=== PATIENT | female | born 1965 | race Caucasian/White ===

== ENCOUNTER 2017-09-23 18:24 | Inpatient (IN) | payer MEDICARE ==
[~2017-09-23] VITALS: Ht 152.4 cm; Wt 74.9 kg
[2017-09-23 18:29] VITALS: BP 94/52; PULSE 72; RESP 18; TEMP 96.4; O2SAT 97
[2017-09-23] MEDS ORDERED: diphenhydrAMINE HCL 50 MG/ML VIAL IM PRN (18:45)
[2017-09-23] MEDS ORDERED: diphenhydrAMINE HCL 50 MG CAP - HS PRN PO (18:45)
[2017-09-23] MEDS ORDERED: diphenhydrAMINE HCL 50 MG/ML VIAL - HS PRN IM (18:45)
[2017-09-23] MEDS ORDERED: diphenhydrAMINE HCL 50 MG CAP PO PRN (18:45)
[2017-09-23] MEDS ORDERED: MAGNESIUM HYDROXIDE SUSP 30 ML CUP PO PRN (18:45)
[2017-09-23] MEDS: REMOVE OLD NICOTINE PATCH T-DERMAL SCH (21:00)
[2017-09-24 06:11] VITALS: BP 114/67; PULSE 68; RESP 17; TEMP 97; O2SAT 96
[2017-09-24 09:11] LABS: BLOOD UREA NITROGEN 18 MG/DL (7-18); CALCIUM 9.1 MG/DL (8.5-10.1); CHLORIDE 110 MEQ/L (98-107); GLOMERULAR FILTRATION RATE 58 ML/MIN (>89); GLUCOSE,RANDOM 96 MG/DL (74-106); SODIUM (NA) 143 MEQ/L (136-145)
[2017-09-24 09:12] LABS: CHOLESTEROL 130 MG/DL (120-200); TRIGLYCERIDES 126 MG/DL (42-150)
[2017-09-24 09:14] LABS: CHOLESTEROL/ HDL RATIO 2.78 RATIO; HDL CHOLESTEROL 46.7 MG/DL (40.0-60.0); LDL CHOLESTEROL 58 MG/DL (0-99)
[2017-09-24] MEDS ORDERED: hydrOXYzine HCL 50 MG TAB PO PRN (10:30)
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
[2017-09-24 11:29] LABS: HEMOGLOBIN A1C 5.5 % (4.3-6.0)
[2017-09-24] MEDS: ACETAMINOPHEN 325 MG TAB PO PRN ×2 (11:45→20:01)
[2017-09-24] MEDS: NICOTINE 21 MG/24 HR PATCH T-DERMAL SCH (11:51)
[2017-09-24] MEDS: hydrOXYzine HCL 50 MG TAB PO PRN ×2 (14:28→20:01)
[2017-09-24 17:37] VITALS: BP 112/68; PULSE 75; RESP 18; TEMP 98.1; O2SAT 100
[2017-09-24] MEDS: REMOVE OLD NICOTINE PATCH T-DERMAL SCH (20:01)
[2017-09-24] MEDS: diphenhydrAMINE HCL 50 MG CAP PO PRN (20:01)
[2017-09-24] MEDS ORDERED: ZIPRASIDONE HCL 40 MG CAP PO SCH (21:00)
[2017-09-25 05:54] VITALS: BP 101/62; PULSE 69; RESP 18; TEMP 97.8; O2SAT 100
[2017-09-25] MEDS: NICOTINE 21 MG/24 HR PATCH T-DERMAL SCH (08:34)
[2017-09-25] MEDS: ACETAMINOPHEN 325 MG TAB PO PRN (10:35)
--- NOTE | 2017-09-25 11:08 | HHI.PYPN ---
Subjective Remarks This note serves as a second opinion for involuntary psychiatric hospitalization. Patient seen and examined with nurse. Chart reviewed. Documentation from [facility] reviewed. Case discussed with nursing staff. No evidence of behavioral disturbance on the inpatient unit. On my examination today, the patient requests that I "take me off whatever is making me sleepy" referring to medication that she started last night, namely Geodon. She denies suicidal ideation presently but says that she was contemplating choking herself with her shoelaces as recently as last night before voluntarily giving her shoes up to nursing. She endorses low mood but says that she usually feels better "when I'm in a secure place." She does not describe AVH presently but says that she has experienced VH of "bugs and things moving" in the past. No delusional material. No current hypomanic or manic symptoms, nor can I elicit any history of same. Presentation has a somewhat manipulative quality and some degree of symptom exaggeration for secondary gain should be considered in the differential. Remainder of the psychiatric ROS is negative. Patient has no acute physical complaints but does report chronic musculoskeletal pains and is requesting Naprosyn. Patient is agreeable to remaining on the inpatient psychiatric unit voluntarily. Past psychiatric history: The patient reports a history of "chronic depression. " She reports that she was admitted 3 months ago to another inpatient psychiatric Hospital. She reports previous suicide attempts by overdose and stepping in front of a truck and train. She reports previous medication trials of Lexapro which was unhelpful, Zoloft which worked as a child but did not work when she tried it again in adulthood, Wellbutrin which the patient did not like , Seroquel on which she overdosed and made her too tired. Cymbalta was reportedly efficacious for pain and depression in the past at uncertain dose, but she experienced tachyphylaxis and stopped this agent; when she next went to mental health provider, they selected a different agent. Family history: The patient reports that her father's side of the family had "problems" and that at least 2 individuals completed suicide. Chemical dependency history: Patient admits to occasional use of alcohol but denies any history of DTs or seizures. She endorses recent use of cocaine. No other substance use reported. Social history: The patient presently has housing but notes that it is not a good living situation as it is in a bad neighborhood and she does not trust the men who live in her building. She previously worked as a corporate development intern. She is . She denies any access to guns or firearms. Past medical history: The patient reports a history of shift work sleep disorder as well as obstructive sleep apnea nonadherent with CPAP therapy. The patient does note that she has been on modafinil in the past for her sleep disorder. Review of Systems Except as stated in HPI: all other systems reviewed are Neg Mental Status Examination Appearance: Disheveled Consciousness: Alert Orientation: x4 Motor Activity: Other (No motor abnormalities noted. No signs of withdrawal noted.) Speech: Unremarkable Language: Adequate Fund of Knowledge: Adequate Attention and Concentration: Adequate Memory: Unremarkable (Grossly intact on clinical exam) Mood: Other (Dysphoric) Affect: Blunt Thought Process & Associations: Intact Thought Content: Appropriate Hallucination Type: None Delusion Type: None Suicidal Ideation: No Suicidal Plan: No Suicidal Intention: No Homicidal Ideation: No Homicidal Plan: No Homicidal Intention: No Insight: Fair Judgment: Impulsive Results Labs Laboratories from outside hospital reviewed: CBC reveals mild leukocytosis with a white blood cell count of 12.1, BMP unremarkable, urine toxicology positive for cocaine. EKG read as sinus rhythm with a QTC of 390 ms, not prolonged. Vitals/IOs Vital Signs Date Time Temp Pulse Resp B/P (MAP) Pulse Ox O2 Delivery O2 Flow Rate FiO2 09/25/17 05:54 97.8 69 18 101/62 (75) 100 Assessment & Plan Problem List: (1) Adjustment disorder with depressed mood ICD Codes: F43.21 - Adjustment disorder with depressed mood (2) Cocaine abuse ICD Codes: F14.10 - Cocaine abuse, uncomplicated Assessment & Plan Patient is agreeable to remaining on the inpatient psychiatric unit voluntarily , and I paddock judge that she is capacitated to consent not only for admission decisions but also for medication/treatment. The patient therefore does not meet criteria for involuntary psychiatric hospitalization. Patient may sign in voluntarily and consent for treatment. I will discontinue Geodon per patient preference. Initiate Cymbalta 30 mg daily with plans to titrate to effect. Atarax as needed for anxiety. R/B/A for medications discussed with patient. Naprosyn and Lidoderm patch for back pain. Check LFTs. Check TSH. Check CBC to follow up on leukocytosis detected at outside hospital. Hospitalist consult for general medical assessment. Continue to monitor on the inpatient unit. Continue other medications and care as ordered. Justification for Cont. Inpt. Monitoring for impairment in safety, none noted. Discharge Planning Anticipate discharge by the end of the week. Request HC Surrog/Guard Advoc?: No Britton Henriquez MD Sep 25, 2017 11:08
[2017-09-25] MEDS: DULoxetine HCl DR 30 MG CAP PO SCH (11:15)
[2017-09-25 12:04] LABS: ALBUMIN 3.7 GM/DL (3.4-5.0); ALT (GPT) 14 U/L (10-53); AST (GOT) 18 U/L (15-37); DIRECT BILIRUBIN ADULT LESS THAN 0.1 MG/DL (0.0-0.2)
[2017-09-25 12:06] LABS: ALKALINE PHOSPHATASE 74 U/L (45-117); INDIRECT BILIRUBIN 0.1 MG/DL (0.0-0.8); TOTAL BILIRUBIN ADULT 0.2 MG/DL (0.2-1.0); TOTAL PROTEIN 7.7 GM/DL (6.4-8.2)
[2017-09-25 17:16] VITALS: BP 111/64; PULSE 78; RESP 18; TEMP 98.1; O2SAT 98
[2017-09-25] MEDS: NAPROXEN 375 MG TAB PO PRN (17:40)
[2017-09-25] MEDS: hydrOXYzine HCL 50 MG TAB PO PRN (17:42)
[2017-09-25] MEDS: ALUMINUM/MAGNESIUM/SIMETH 30 ML CUP PO PRN (19:51)
[2017-09-25 19:54] LABS: AUTOMATED NEUTROPHIL # 6.8 TH/MM3 (1.8-7.7); BASOPHIL # 0.1 TH/MM3 (0-0.2); BASOPHIL % 1.1 % (0.0-2.0); EOSINOPHIL # 0.2 TH/MM3 (0-0.4); EOSINOPHIL % 1.9 % (0.0-4.0); HEMATOCRIT 41.5 % (35.0-46.0); LYMPH % 20.7 % (9.0-44.0); LYMPHOCYTE # 2.1 TH/MM3 (1.0-4.8); MEAN CELL VOLUME 83.9 FL (80.0-100.0); MEAN CORPUSCULAR HEMOGLOBIN 28.4 PG (27.0-34.0); MEAN CORPUSCULAR HGB CONC 33.9 % (32.0-36.0); MEAN PLATELET VOLUME 10.2 FL (7.0-11.0); MONO % 9.5 % (0.0-8.0); NEUT % 66.8 % (16.0-70.0); PLATELET COUNT 245 TH/MM3 (150-450); RED BLOOD COUNT 4.94 MIL/MM3 (4.00-5.30); RED CELL DISTRIBUTION WIDTH 13.2 % (11.6-17.2); WHITE BLOOD COUNT 10.1 TH/MM3 (4.0-11.0)
[2017-09-25] MEDS: diphenhydrAMINE HCL 50 MG CAP PO PRN (21:00)
[2017-09-25] MEDS: REMOVE OLD NICOTINE PATCH T-DERMAL SCH (21:00)
[2017-09-26 06:18] VITALS: BP 99/51; PULSE 59; RESP 18; TEMP 96.7; O2SAT 100
[2017-09-26] MEDS: DULoxetine HCl DR 30 MG CAP PO SCH (09:00)
[2017-09-26] MEDS ORDERED: LIDOCAINE HCL 5% PATCH T-DERMAL SCH (09:00)
[2017-09-26] MEDS: NICOTINE 21 MG/24 HR PATCH T-DERMAL SCH (09:00)
--- NOTE | 2017-09-26 10:55 | HHI.PYPN ---
Subjective Remarks Patient seen and examined with nurse. Chart reviewed. Case discussed with nursing staff. No behavioral issues noted. Case discussed in treatment team. On my examination today, the patient continues to endorse low mood. She endorses poor sleep. She endorses ongoing suicidal ideation. Although she has no desire to hurt herself on the inpatient unit, she does note that there are " a million ways" someone could self-injure, such as by falling from the window- ledge in her room back onto the floor or bed. Patient denies side effects from medications besides some mild nausea, no reported emesis. No acute physical complaints. Patient is requesting additional medication to help with sleep. We discussed her options in this regard, and patient would like to return to Seroquel as she did find it efficacious as a hypnotic and only found it too sedating when she took a dose during the day. Review of Systems Except as stated in HPI: all other systems reviewed are Neg Mental Status Examination Appearance: Appropriate Consciousness: Alert Orientation: x4 Motor Activity: Other (No abnormal motor movements noted. No signs of any withdrawal noted.) Speech: Unremarkable Language: Adequate Fund of Knowledge: Adequate Attention and Concentration: Adequate Memory: Unremarkable Mood: Other (Remains dysphoric) Affect: Blunt (A little more reactive today) Thought Process & Associations: Intact, Logical, Linear Thought Content: Appropriate Hallucination Type: None Delusion Type: None Suicidal Ideation: Yes Suicidal Plan: Yes Suicidal Intention: No (No urge to hurt herself on the inpatient unit) Homicidal Ideation: No Homicidal Plan: No Homicidal Intention: No Insight: Fair Judgment: Impulsive Results Labs Test 09/25/17 19:23 White Blood Count 10.1 TH/MM3 Red Blood Count 4.94 MIL/MM3 Hemoglobin 14.0 GM/DL Hematocrit 41.5 % Mean Corpuscular Volume 83.9 FL Mean Corpuscular Hemoglobin 28.4 PG Mean Corpuscular Hemoglobin Concent 33.9 % Red Cell Distribution Width 13.2 % Platelet Count 245 TH/MM3 Mean Platelet Volume 10.2 FL Neutrophils (%) (Auto) 66.8 % Lymphocytes (%) (Auto) 20.7 % Monocytes (%) (Auto) 9.5 % Eosinophils (%) (Auto) 1.9 % Basophils (%) (Auto) 1.1 % Neutrophils # (Auto) 6.8 TH/MM3 Lymphocytes # (Auto) 2.1 TH/MM3 Monocytes # (Auto) 1.0 TH/MM3 Eosinophils # (Auto) 0.2 TH/MM3 Basophils # (Auto) 0.1 TH/MM3 CBC Comment DIFF FINAL Differential Comment Labs reviewed Vitals/IOs Vital Signs Date Time Temp Pulse Resp B/P (MAP) Pulse Ox O2 Delivery O2 Flow Rate FiO2 09/26/17 06:18 96.7 59 18 99/51 (67) 100 Assessment & Plan Problem List: (1) Adjustment disorder with depressed mood ICD Codes: F43.21 - Adjustment disorder with depressed mood (2) Cocaine abuse ICD Codes: F14.10 - Cocaine abuse, uncomplicated Assessment & Plan Add Seroquel 50 mg at bedtime primarily for sleep although this may help with mood as well. R/P/A for this medication discussed with patient in detail. Continue Cymbalta as ordered, although we may consider titrating this agent as well for mood. Continue to monitor on the high acuity unit at this time. Awaiting hospitalist consultation. Continue other medications and care as ordered. Justification for Cont. Inpt. Med changes. Monitoring for impairment in safety. Discharge Planning Pending stabilization Request HC Surrog/Guard Advoc?: No Britton Henriquez MD Sep 26, 2017 10:55
[2017-09-26] MEDS: hydrOXYzine HCL 50 MG TAB PO PRN ×3 (12:00→22:53)
[2017-09-26] MEDS ORDERED: predniSONE 20 MG TAB PO ONE (14:45)
[2017-09-26] MEDS ORDERED: LORazepam 2 MG TAB PO PRN (14:45)
[2017-09-26] MEDS ORDERED: ALBUTEROL SULFATE 90 MCG/ACT HFA 8 GM INHALER INH PRN (14:45)
[2017-09-26] MEDS ORDERED: LORazepam 2 MG/ML VIAL IV PUSH PRN ×4 (14:45)
[2017-09-26] MEDS ORDERED: FLUMAZENIL 0.5 MG/5 ML VIAL IV PUSH PRN (14:45)
[2017-09-26] MEDS ORDERED: LORazepam 1 MG TAB PO PRN (14:45)
[2017-09-26] MEDS ORDERED: IPRAAER INH (14:48)
[2017-09-26] MEDS ORDERED: ALBU0.63 NEB (14:49)
--- NOTE | 2017-09-26 14:51 | PD.CONS ---
HPI Service [facility] Hospitalists Consult Requested By Primary Care Physician No Primary Care Physician Diagnoses: History of Present Illness History from patient, and review of medical records. Patient is admitted to psychiatry service. Patient reported that she came to the hospital on Monday voluntarily because she knew that she was going into her manic episodes. She stated that for the past 3 days prior to Monday, she was binge drinking, smoking, and using at least 3 g of cocaine by snorting. She usually gets like this and is promiscuous every time she goes into manic episodes. Something has triggered her during this episode and she stated she knew enough to come to the hospital for psychiatry evaluation. She presented to [facility] emergency room. She was then transferred to [place] inpatient psychiatry unit. At the time of my exam, patient is quite calm. Patient states that she usually is a calm person who likes to stay by herself. Her only complaint at present is that she has back pain and neck pain which is starting. She states suffers from osteoarthritis, spondylitis, and fibromyalgia and sciatica. When she gets these type of pains, she usually takes Medrol pack of prednisone together with Robaxin 1 dose and oxycodone one dose. She denies using any chronic opiate abuse. She does not take any prescription meds. Usually she would present to emergency room with the pain is severe and would just be given steroid pills or injection and she would be okay. Patient was given lidocaine patch yesterday. She states that this was not helping her. She is also worried because she has no pitting patch on her and she does not usually smoke cigarettes. She states that she never buys a pack of cigarettes. She only smokes during her manic episodes and usually gets that from others. Patient is noted to be diaphoretic on examination. She reports that she has been sweating quite a bit in the past 2 days. Denies any fever. Denies cough. Denies nasal congestion. Denies any burning urination or pain on urination or frequent urination. Review of Systems Except as stated in HPI: all other systems reviewed are Neg Past Family Social History Allergies: Coded Allergies: amoxicillin (Verified Allergy, Unknown, 09/24/17) aspirin (Verified Allergy, Unknown, 09/24/17) clavulanic acid (Verified Allergy, Unknown, 09/24/17) horseradish (Verified Allergy, Unknown, 09/24/17) Past Medical History Baseline low blood pressure COPD Sleep apnea on C Pap at home. Has not used this for past 1 year since he does not have a primary care doctor. Was born with unilateral left kidney Osteoarthritis Spondylitis Sciatica Fibromyalgia Denies any diabetes/CAD/CHF/atrial fibrillation/liver issues/stroke/blood clots/ seizures/thyroid problems/cancers Past Surgical History Hysterectomy Reattachment of her left unilateral kidney and ureters back to bladder after there was complication post hysterectomy Lysis of adhesions for chronic endometriosis Right oophorectomy/partial hysterectomy/tubal ligation Cervical fusion surgery Lumbar surgery Adenoidectomy Tonsillectomy with partial palate removal Breast reduction surgery Appendectomy Cholecystectomy Family History Both parents with massive SD Mother with diabetes and COPD Cancer in both sides of the family Social History Smokes socially. States she usually smokes only when she is in manic mode. Never buys cigarette by herself. Drinks alcohol when she is in manic mode is present drinking. She has been drinking nonstop for the past 3 days prior to coming to hospital on Monday. Denies IV drug abuse. Snorts cocaine whenever she is in manic episodes. Physical Exam Vital Signs Vital Signs Date Time Temp Pulse Resp B/P (MAP) Pulse Ox O2 Delivery O2 Flow Rate FiO2 09/26/17 06:18 96.7 59 18 99/51 (67) 100 09/25/17 17:16 98.1 78 18 111/64 (80) 98 Physical Exam GENERAL: This is a well-nourished, well-developed patient, in no apparent distress. Very pleasant lady. SKIN: No rashes, ecchymoses or lesions. Cool and dry. HEAD: Atraumatic. Normocephalic. No temporal or scalp tenderness. EYES: No scleral icterus. No injection or drainage. ENT: Nose without bleeding, purulent drainage or septal hematoma.. Airway patent. NECK: Trachea midline. No JVD . Supple, nontender, no meningeal signs. CARDIOVASCULAR: Regular rate and rhythm without murmurs, gallops, or rubs. RESPIRATORY: Clear to auscultation. Breath sounds equal bilaterally. No wheezes , rales, or rhonchi. GASTROINTESTINAL: Abdomen soft, non-tender, nondistended. No guarding. MUSCULOSKELETAL: Extremities without clubbing, cyanosis, or edema. . No calf tenderness. Scoliosis NEUROLOGICAL: Awake and alert. Motor and sensory grossly within normal limits. Normal speech. Laboratory Laboratory Tests Test 09/25/17 19:23 White Blood Count 10.1 Red Blood Count 4.94 Hemoglobin 14.0 Hematocrit 41.5 Mean Corpuscular Volume 83.9 Mean Corpuscular Hemoglobin 28.4 Mean Corpuscular Hemoglobin Concent 33.9 Red Cell Distribution Width 13.2 Platelet Count 245 Mean Platelet Volume 10.2 Neutrophils (%) (Auto) 66.8 Lymphocytes (%) (Auto) 20.7 Monocytes (%) (Auto) 9.5 Eosinophils (%) (Auto) 1.9 Basophils (%) (Auto) 1.1 Neutrophils # (Auto) 6.8 Lymphocytes # (Auto) 2.1 Monocytes # (Auto) 1.0 Eosinophils # (Auto) 0.2 Basophils # (Auto) 0.1 CBC Comment DIFF FINAL Differential Comment Result Diagram: 09/25/17 1923 09/24/17 0800 Assessment and Plan Assessment and Plan Impression: Suicidal ideation Manic episodes prior to hospitalization Acute worsening of chronic arthritic and sciatic pains Diaphoresis. Suspects patient will be going into alcohol withdrawal since she has been binge drinking prior to coming to hospital. Baseline low blood pressure COPD Sleep apnea on C Pap at home. Has not used this for past 1 year since he does not have a primary care doctor. Was born with unilateral left kidney Osteoarthritis Spondylitis Sciatica Fibromyalgia Plan: Will start patient on prednisone 20 mg by mouth daily dose. With aim to DC the dose within 3-5 days. Also will give her Robaxin 500 mg by mouth one. Give oxycodone 5 mg by mouth one dose after about 30 minutes from Robaxin. Patient is explained of the above and she is agreeable with the plan. Discontinue lidocaine patch. Discontinue nicotinic patch. CIWA protocol. Watch for withdrawals. Start patient on albuterol MDI as needed for dyspnea/wheezing. Patient will be prescribed MDI and nebulizers on discharge. Also consult case management for possible C Pap prescription on discharge through her insurance since she has been out of it. She uses it with pressure support of 6. DVT prophylaxis with ambulation. Discussed Condition With Patient, nursing staff Gini Nickerson MD Sep 26, 2017 14:51
[2017-09-26] MEDS ORDERED: METHOCARBAMOL 500 MG TAB PO ONE (15:45)
[2017-09-26 18:27] VITALS: BP 129/58; PULSE 78; RESP 17; TEMP 98.7; O2SAT 98
[2017-09-26] MEDS: QUEtiapine FUMARATE 100 MG TAB PO SCH (20:25)
[2017-09-26] MEDS: diphenhydrAMINE HCL 50 MG CAP PO PRN (20:25)
[2017-09-26] MEDS: NAPROXEN 375 MG TAB PO PRN (22:54)
[2017-09-27 05:47] VITALS: BP 131/81; PULSE 74; RESP 18; TEMP 97.7; O2SAT 96
[2017-09-27] MEDS: DULoxetine HCl DR 30 MG CAP PO SCH (08:49)
[2017-09-27] MEDS: NAPROXEN 375 MG TAB PO PRN (08:50)
[2017-09-27] MEDS: predniSONE 20 MG TAB PO SCH (09:13)
--- NOTE | 2017-09-27 11:28 | HHI.PYPN ---
Subjective Remarks Patient seen and examined with nurse. Chart reviewed. Case discussed with nursing staff. No behavioral issues noted overnight. On my examination today, mood remains depressed. Sleep is poor. Patient is experiencing ongoing suicidal ideation as before. No reported desire to hurt herself on the inpatient unit. Complains of some jerking movements in her legs, possibly associated with initiation of Seroquel although this is unclear. She did not have this side effect in the past. No other side effects from medications. No acute physical complaints. Review of Systems Except as stated in HPI: all other systems reviewed are Neg Mental Status Examination Appearance: Appropriate Consciousness: Alert Orientation: x4 Motor Activity: Other (no signs of withdrawal noted. No motoric abnormalities noted.) Speech: Unremarkable Language: Adequate Fund of Knowledge: Adequate Attention and Concentration: Adequate Memory: Unremarkable Mood: Other (remains depressed) Affect: Other (somewhat more full and reactive today) Thought Process & Associations: Intact, Logical, Linear Thought Content: Appropriate Hallucination Type: None Delusion Type: None Suicidal Ideation: Yes Suicidal Plan: Yes Suicidal Intention: No (again no urge to hurt herself on the inpatient unit) Homicidal Ideation: No Homicidal Plan: No Homicidal Intention: No Insight: Fair Judgment: Impulsive Results Labs Labs reviewed Vitals/IOs Vital Signs Date Time Temp Pulse Resp B/P (MAP) Pulse Ox O2 Delivery O2 Flow Rate FiO2 09/27/17 05:47 97.7 74 18 131/81 (98) 96 Assessment & Plan Problem List: (1) Adjustment disorder with depressed mood ICD Codes: F43.21 - Adjustment disorder with depressed mood (2) Cocaine abuse ICD Codes: F14.10 - Cocaine abuse, uncomplicated Assessment & Plan Titrate Cymbalta to 60 mg daily for mood. Continue Seroquel as ordered for now , although we may have to discontinue or adjust therapy if it seems likely that leg movements are caused by the Seroquel. Hospitalist input noted and appreciated. Given ongoing suicidal ideation I will retain the patient on the high acuity unit, but I do think that she would benefit from groups including psychotherapy group on the lower acuity unit and so have placed a nursing order that the patient may attend these groups at nursing discretion. Continue other medications and care as ordered. Justification for Cont. Inpt. Monitoring for impairment and safety. Medication changes. Discharge Planning Pending psychiatric stabilization Request HC Surrog/Guard Advoc?: No Chaiffetz,Britton B. MD Sep 27, 2017 11:28
--- NOTE | 2017-09-27 12:29 | HHI.PR ---
Subjective Remarks Reports that she had a hard time yesterday evening with her back and neck pain because her pain meds were given only once as ordered by me. Patient is quite pleasant about it though. Denies any other symptoms apart from this pain and also some spasms. She thinks that she might have had spasms and jerks because of her Benadryl and Seroquel. No further episodes of diaphoresis. Objective Vital Signs Date Time Temp Pulse Resp B/P (MAP) Pulse Ox O2 Delivery O2 Flow Rate FiO2 09/27/17 05:47 97.7 74 18 131/81 (98) 96 09/26/17 18:27 98.7 78 17 129/58 (81) 98 Result Diagram: 09/25/17 19209/24/17 0800 Objective Remarks Awake, alert, denies any discomfort apart from her chronic back and neck pain. Heart rate is regular, no murmur appreciated. Lungs are clear. Abdomen is soft. Nontender. No rebound. Lower extremities did not reveal any evidence of asymmetry or edema. A/P Assessment and Plan Impression: Suicidal ideation Manic episodes prior to hospitalization Acute worsening of chronic arthritic and sciatic pains Diaphoresis. Resolved. Baseline low blood pressure COPD Sleep apnea on C Pap at home. Has not used this for past 1 year since he does not have a primary care doctor. Was born with unilateral left kidney Osteoarthritis Spondylitis Sciatica Fibromyalgia Plan: Currently have started patient on prednisone 20 mg p.o. daily yesterday. Will continue this for total of 5 days. Pain is much improved with this. Continue Robaxin 500 mg p.o. every 8 hours as needed for spasms. Oxycodone 5 mg p.o. every 4 hours as needed for pain greater than 5. Patient is explained of the above and she is agreeable with the plan. WA protocol. Watch for withdrawals. albuterol MDI as needed for dyspnea/wheezing. Patient will be prescribed MDI and nebulizers on discharge.Prescriptions written Also consult case management for possible C Pap prescription on discharge through her insurance since she has been out of it. She uses it with pressure support of 6. DVT prophylaxis with ambulation. We will sign off on the case. Patient is medically stable. Discharge Planning per psychiatry Gini Nickerson MD Sep 27, 2017 12:29
[2017-09-27 16:45] VITALS: BP 120/69; PULSE 83; RESP 18; TEMP 98.6; O2SAT 99
[2017-09-27] MEDS: QUEtiapine FUMARATE 100 MG TAB PO SCH (20:06)
[2017-09-27] MEDS: METHOCARBAMOL 500 MG TAB PO PRN (20:06)
[2017-09-28 05:26] VITALS: BP 118/61; PULSE 72; RESP 17; TEMP 97.6; O2SAT 98
[2017-09-28] MEDS: predniSONE 20 MG TAB PO SCH (07:57)
[2017-09-28] MEDS: DULoxetine HCl DR 60 MG CAP PO SCH (07:57)
[2017-09-28] MEDS: METHOCARBAMOL 500 MG TAB PO PRN ×2 (07:59→21:17)
[2017-09-28] MEDS: NAPROXEN 375 MG TAB PO PRN (08:06)
[2017-09-28] MEDS ORDERED: DULoxetine HCl DR 30 MG CAP PO SCH (09:00)
--- NOTE | 2017-09-28 12:28 | HHI.PYPN ---
Subjective Remarks Patient seen and examined with nurse. Chart reviewed. Case discussed with nursing staff. On my examination today, patient reports that sleep is improved but remained somewhat poor. She did not have any further leg cramps or discomfort and would like to titrate the Seroquel. Mood is improved today, and affect is much more full and reactive. She continues to verbalize some suicidal ideation but this is much more vague, and she contracts for safety on the inpatient unit. She denies side effects from medications. She does complain of some urinary malodor and frequency but otherwise has no physical complaints. Review of Systems Except as stated in HPI: all other systems reviewed are Neg Mental Status Examination Appearance: Appropriate Consciousness: Alert Orientation: x4 Motor Activity: Other (No motor abnormalities noted. No withdrawal noted.) Speech: Unremarkable Language: Adequate Fund of Knowledge: Adequate Attention and Concentration: Adequate Memory: Unremarkable Mood: Other (Depressed but improving) Affect: Other (Significantly more full and reactive today.) Thought Process & Associations: Intact, Logical, Linear Thought Content: Appropriate Hallucination Type: None Delusion Type: None Suicidal Ideation: Yes Suicidal Plan: No Suicidal Intention: No (Contracts for safety on the inpatient unit) Homicidal Ideation: No Homicidal Plan: No Homicidal Intention: No Insight: Fair Judgment: Impulsive (Less so) Results Labs Labs reviewed Vitals/IOs Vital Signs Date Time Temp Pulse Resp B/P (MAP) Pulse Ox O2 Delivery O2 Flow Rate FiO2 09/28/17 05:26 97.6 72 17 118/61 (80) 98 Assessment & Plan Problem List: (1) Adjustment disorder with depressed mood ICD Codes: F43.21 - Adjustment disorder with depressed mood (2) Cocaine abuse ICD Codes: F14.10 - Cocaine abuse, uncomplicated Assessment & Plan Titrate Seroquel to 100 mg at bedtime. Continue Cymbalta as ordered. Check a urinalysis for complaints of urinary malodor and frequency. Hospitalist input noted and appreciated. Suicidal ideation is lessening with treatment, and I think it is appropriate at this juncture to transfer the patient to the lower acuity unit. Continue other medications and care as ordered. Justification for Cont. Inpt. Monitoring for impairment in safety, none noted. Risk for decompensation in less restrictive environment. Discharge Planning Pending psychiatric stabilization. Possible discharge beginning of next week. Request HC Surrog/Guard Advoc?: No Britton Henriquez MD Sep 28, 2017 12:28
[2017-09-28 16:43] LABS: BACTERIA, URINE MOD /hpf; BILIRUBIN, URINE NEG (NEG); BLOOD, URINE TRACE (NEG); GLUCOSE,URINE NEG (NEG); KETONE, URINE NEG (NEG); MUCUS URINE FEW /lpf (OCC); NITRITE,URINE NEG (NEG); SQUAMOUS EPITHELIAL CELL URINE 2 /hpf (0-5); URINE COLOR YELLOW (YELLW/STRAW); URINE LEUKOCYTE ESTERASE LARGE (NEG)
[2017-09-28 17:50] VITALS: BP 113/58; PULSE 77; RESP 18; TEMP 98.1; O2SAT 99
[2017-09-28] MEDS: QUEtiapine FUMARATE 100 MG TAB PO SCH (20:17)
[2017-09-28] MEDS: hydrOXYzine HCL 50 MG TAB PO PRN (21:20)
[2017-09-29] MEDS: hydrOXYzine HCL 50 MG TAB PO PRN (03:40)
[2017-09-29 06:03] VITALS: BP 117/67; PULSE 63; RESP 18; TEMP 98; O2SAT 97
[2017-09-29] MEDS: DULoxetine HCl DR 60 MG CAP PO SCH (08:53)
[2017-09-29] MEDS: METHOCARBAMOL 500 MG TAB PO PRN (10:00)
[2017-09-29] MEDS: predniSONE 20 MG TAB PO SCH (10:00)
--- NOTE | 2017-09-29 13:53 | HHI.PYPN ---
Subjective Remarks Patient seen and examined with nurse. Chart reviewed. Case discussed with nursing staff. Seroquel held overnight because of blood pressure parameters. Patient complains this morning that sleep was disturbed because the Seroquel was held. She notes that her blood pressure typically runs fairly low, but she would like to continue the Seroquel regardless. We discussed the risks of so doing, including the risk of fall or other ill effects from hypertension. Patient is cognizant of these risks but wishes the blood pressure parameters to be removed. I have counseled the patient regarding safe standing. Mood is improving. No SI or HI. No side effects from medications. No new physical complaints. Review of Systems Except as stated in HPI: all other systems reviewed are Neg Mental Status Examination Appearance: Appropriate Consciousness: Alert Orientation: x4 Motor Activity: Other (No abnormal motor movements noted) Speech: Unremarkable Language: Adequate Fund of Knowledge: Adequate Attention and Concentration: Adequate Memory: Unremarkable Mood: Other (Mood is improving) Affect: Other (Full and reactive) Thought Process & Associations: Intact, Logical, Linear Thought Content: Appropriate Hallucination Type: None Delusion Type: None Suicidal Ideation: No Homicidal Ideation: No Insight: Fair Judgment: Impulsive (Less so) Results Labs Test 09/28/17 14:14 Urine Color YELLOW Urine Turbidity HAZY Urine pH 6.0 Urine Specific [place] 1.019 Urine Protein NEG mg/dL Urine Glucose (UA) NEG mg/dL Urine Ketones NEG mg/dL Urine Occult Blood TRACE Urine Nitrite NEG Urine Bilirubin NEG Urine Urobilinogen LESS THAN 2.0 MG/DL Urine Leukocyte Esterase LARGE Urine RBC 38 /hpf Urine WBC 113 /hpf Urine Squamous Epithelial Cells 2 /hpf Urine Bacteria MOD /hpf Urine Mucus FEW /lpf Microscopic Urinalysis Comment CULTURE INDICATED Date/Time Source Procedure Growth Status 09/28/17 14:14 Urine Clean Catch Urine Culture Pending Received Labs reviewed. UA concerning for possible UTI. Urine culture pending. Vitals/IOs Vital Signs Date Time Temp Pulse Resp B/P (MAP) Pulse Ox O2 Delivery O2 Flow Rate FiO2 09/29/17 06:03 98.0 63 18 117/67 (84) 97 Assessment & Plan Problem List: (1) Adjustment disorder with depressed mood ICD Codes: F43.21 - Adjustment disorder with depressed mood (2) Cocaine abuse ICD Codes: F14.10 - Cocaine abuse, uncomplicated Assessment & Plan Discontinue blood pressure parameters on patient Seroquel. [place] fall precautions. Start Macrobid for possible UTI. Follow up urine cultures. Patient is requesting prophylactic Diflucan if antibiotic is started for UTI, but I note that this medication has the potential to interact both with her Seroquel and with her opiate pain medications, and so I will not start this agent prophylactically. Continue to monitor on the inpatient unit. Continue other medications and care as ordered. Justification for Cont. Inpt. Risk for decompensation in less restrictive environment. Discharge Planning Possible discharge after the weekend Request HC Surrog/Guard Advoc?: No Britton Henriquez MD Sep 29, 2017 13:53
[2017-09-29 17:17] VITALS: BP 105/59; PULSE 73; RESP 16; TEMP 98.3; O2SAT 95
[2017-09-29] MEDS: NITROFURANTOIN MONOHYD MACROCR 100 MG CAP PO SCH (17:39)
[2017-09-29] MEDS: QUEtiapine FUMARATE 100 MG TAB PO SCH (20:40)
[2017-09-30 06:03] VITALS: BP 102/56; PULSE 69; RESP 17; TEMP 97.3; O2SAT 98
[2017-09-30] MEDS: NITROFURANTOIN MONOHYD MACROCR 100 MG CAP PO SCH ×2 (09:23→17:49)
[2017-09-30] MEDS: DULoxetine HCl DR 60 MG CAP PO SCH (09:23)
[2017-09-30] MEDS: predniSONE 20 MG TAB PO SCH (09:23)
--- NOTE | 2017-09-30 13:19 | HHI.PYPN ---
Subjective Remarks Reviewed electronic medical record and discussed case with staff. Patient follow-up was conducted in the exam room with nurse present. Patient reports that she is "feeling better now". She does complain that her pain was "really high this morning". She also advises that she has found a room to rent locally upon discharge. She endorses still having thoughts of self-harm but states that she is now "future oriented thinking about places to live and doctors". She denies having homicidal ideation, auditory or visual hallucinations. I can elicit no delusional material. She reports that she slept well and her appetite has been good. Mental Status Examination Appearance: Appropriate Consciousness: Alert Orientation: x4 Motor Activity: Other (No abnormal motor movements noted) Speech: Unremarkable Language: Adequate Fund of Knowledge: Adequate Attention and Concentration: Adequate Memory: Unremarkable Mood: Other (Mood is improving) Affect: Other (Full and reactive) Thought Process & Associations: Intact, Logical, Linear Thought Content: Appropriate Hallucination Type: None Delusion Type: None Suicidal Ideation: No Homicidal Ideation: No Insight: Fair Judgment: Impulsive (Less so) Results Labs Date/Time Source Procedure Growth Status 09/28/17 14:14 Urine Clean Catch Urine Culture - Final 50-100,000 CFU/ML MIXED GRAM POSITIVE... Complete Vitals/IOs Vital Signs Date Time Temp Pulse Resp B/P (MAP) Pulse Ox O2 Delivery O2 Flow Rate FiO2 09/30/17 10:25 14 09/30/17 06:03 97.3 69 102/56 (71) 98 Assessment & Plan Problem List: (1) Adjustment disorder with depressed mood ICD Codes: F43.21 - Adjustment disorder with depressed mood (2) Cocaine abuse ICD Codes: F14.10 - Cocaine abuse, uncomplicated Assessment & Plan Estimated LOS: Patient continues to endorse having suicidal thoughts with a sure he reports that she is now also future oriented. Justification for Cont. Inpt. Moving this patient to a lower level of care would likely result and decompensation. We will continue with treatment plan. Request HC Surrog/Guard Advoc?: No Kathryn Koenig Sep 30, 2017 13:19
[2017-09-30] MEDS: METHOCARBAMOL 500 MG TAB PO PRN ×2 (13:32→21:33)
[2017-09-30 17:42] VITALS: BP 122/57; PULSE 65; RESP 16; TEMP 97.8; O2SAT 97
--- NOTE | 2017-09-30 18:36 | EKG ---
Date Performed: 09/29/2017 Time Performed: 15:40:10 PTAGE: 52 years EKG: Sinus rhythm INCOMPLETE RIGHT BUNDLE BRANCH BLOCK BORDERLINE ECG NO PREVIOUS TRACING DOCTOR: Basilio Mae Interpretating Date/Time 09/30/2017 18:35:03
[2017-09-30] MEDS: QUEtiapine FUMARATE 100 MG TAB PO SCH (21:33)
[2017-10-01 05:47] VITALS: BP 114/54; PULSE 60; RESP 17; TEMP 98.2; O2SAT 96
[2017-10-01] MEDS: predniSONE 20 MG TAB PO SCH (09:14)
[2017-10-01] MEDS: NITROFURANTOIN MONOHYD MACROCR 100 MG CAP PO SCH ×2 (09:14→18:25)
[2017-10-01] MEDS: DULoxetine HCl DR 60 MG CAP PO SCH (09:15)
[2017-10-01] MEDS: METHOCARBAMOL 500 MG TAB PO PRN (10:25)
[2017-10-01] MEDS: ALUMINUM/MAGNESIUM/SIMETH 30 ML CUP PO PRN (12:06)
--- NOTE | 2017-10-01 16:15 | HHI.PYPN ---
Subjective Remarks Reviewed electronic medical record discussed case with staff. Nurse advises an assisted living placement has been arranged. She believes patient is to be transferred in the next day or 2. Patient's follow-up was performed in her room. Patient was found in day room and ambulated to her room without difficulty. She reports that "today is a bad day because of my pain". Patient' s interview consisted of a litany of somatic pain, she refers to her fibromyalgia frequently. When asked if she feels suicidal patient states "I be lying to say they are not there but they are getting better every day". Patient reports that she is not homicidal, denies visual or auditory hallucinations. Mental Status Examination Appearance: Appropriate Consciousness: Alert Orientation: x4 Motor Activity: Other (No abnormal motor movements noted) Speech: Unremarkable Language: Adequate Fund of Knowledge: Adequate Attention and Concentration: Adequate Memory: Unremarkable Mood: Other (Mood is improving) Affect: Other (Full and reactive) Thought Process & Associations: Intact, Logical, Linear Thought Content: Appropriate Hallucination Type: None Delusion Type: None Suicidal Ideation: No Homicidal Ideation: No Insight: Fair Judgment: Impulsive (Less so) Results Labs Date/Time Source Procedure Growth Status 09/28/17 14:14 Urine Clean Catch Urine Culture - Final 50-100,000 CFU/ML MIXED GRAM POSITIVE... Complete Vitals/IOs Vital Signs Date Time Temp Pulse Resp B/P (MAP) Pulse Ox O2 Delivery O2 Flow Rate FiO2 10/01/17 14:45 17 10/01/17 05:47 98.2 60 114/54 (74) 96 Assessment & Plan Problem List: (1) Adjustment disorder with depressed mood ICD Codes: F43.21 - Adjustment disorder with depressed mood (2) Cocaine abuse ICD Codes: F14.10 - Cocaine abuse, uncomplicated Assessment & Plan Estimated LOS: Patient still endorses occasional thoughts of self-harm. Anticipates discharge to assisted living facility within the next couple of days. Days Justification for Cont. Inpt. Moving this patient to a lower level of care at this time would likely result in decompensation. Request HC Surrog/Guard Advoc?: No Kathryn Koenig Oct 01, 2017 16:15
[2017-10-01 18:25] VITALS: BP 121/67; PULSE 74; RESP 17; TEMP 98.6; O2SAT 96
[2017-10-01] MEDS: QUEtiapine FUMARATE 100 MG TAB PO SCH (21:00)
[2017-10-01 21:51] VITALS: BP 123/59; PULSE 81
[2017-10-02 06:29] VITALS: BP 104/53; PULSE 70; RESP 16; TEMP 98.4; O2SAT 97
[2017-10-02] MEDS ORDERED: METH500T3 PO (08:56)
[2017-10-02] MEDS ORDERED: OXYC-392 PO (08:56)
[2017-10-02] MEDS ORDERED: DULO1CAP3 PO (08:56)
[2017-10-02] MEDS ORDERED: QUET1TAB8 PO (08:56)
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
[2017-10-02] MEDS: DULoxetine HCl DR 60 MG CAP PO SCH (09:23)
== END 2017-10-02 13:25 | disposition home or self-care (01) | DRG 885 ==
LOC: H270 18:24 → H260 09-28 14:40
PROVIDERS: ADMIT Psychiatry & Neurology Psychiatry; ATTEND Psychiatry & Neurology Psychiatry
DX: F31.63 Bipolar disorder, current episode mixed, severe, without psychotic features (principal); R45.851 Suicidal ideations; Z91.14 Patient's other noncompliance with medication regimen; F43.21 Adjustment disorder with depressed mood; F14.10 Cocaine abuse, uncomplicated; F17.210 Nicotine dependence, cigarettes, uncomplicated; Z91.5 Personal history of self-harm; J44.9 Chronic obstructive pulmonary disease, unspecified; G47.33 Obstructive sleep apnea (adult) (pediatric); M19.90 Unspecified osteoarthritis, unspecified site; M79.7 Fibromyalgia; M54.30 Sciatica, unspecified side; G47.8 Other sleep disorders; Z88.6 Allergy status to analgesic agent; Z88.0 Allergy status to penicillin
CPT/HCPCS: 80048; 80061; 80076; 81001; 83036; 84443; 85025; 87086; 93005; J7512; Q0163